=== PATIENT | male | born 1975 | race Caucasian/White ===

== ENCOUNTER 2017-02-16 11:25 | Emergency (ER) | payer OTHER | END 2017-02-16 12:35 | disposition home or self-care (01) | LOC: ER1 11:25 | DX: S83.411A Sprain of medial collateral ligament of right knee, initial encounter (principal); F17.210 Nicotine dependence, cigarettes, uncomplicated; Z88.0 Allergy status to penicillin; X58.XXXA Exposure to other specified factors, initial encounter; Y93.01 Activity, walking, marching and hiking; Y92.009 Unspecified place in unspecified non-institutional (private) residence as the place of occurrence of the external cause | CPT/HCPCS: 73564; 73590; 99283 ==

== ENCOUNTER 2017-03-18 09:12 | Emergency (ER) | payer OTHER | END 2017-03-18 10:10 | disposition home or self-care (01) | LOC: ER1 09:12 | DX: L23.7 Allergic contact dermatitis due to plants, except food (principal); F17.200 Nicotine dependence, unspecified, uncomplicated | CPT/HCPCS: 99282; Q0163 ==

== ENCOUNTER → 2017-07-07 | Outpatient (CLI) | payer OTHER | LOC: RAD 11:20 | DX: M25.561 Pain in right knee (principal); M25.562 Pain in left knee; M25.511 Pain in right shoulder; M84.411D Pathological fracture, right shoulder, subsequent encounter for fracture with routine healing | CPT/HCPCS: 73000; 73564 ==

== ENCOUNTER 2022-03-27 21:51 | Emergency (ER) | payer OTHER, MEDICARE ==
[~2022-03-27 21:51] MED LIST: ADULT LOW DOSE81 MG PO; CLEOCIN HCL300 MG PO; COL-RITE250 MG PO; DEPAKOTE 250 M250 MG PO; DILAUDID 4 MG TA4 MG PO; ECOTRIN81 MG PO; EFFEXOR XR75 MG PO; ENBREL INJ; ENBREL50 MG/1 M1 SQ; FLOMAX0.4 MG PO; FOLIC ACID 1 MG1 MG PO; GABAPENTIN300 MG PO; IBUPROFEN800 MG PO; IMITREX25 MG PO; MEN'S MULTI-VI1 EACH PO; METHOTREXATE T2.5 MG PO; METHOTREXATE2.5 MG PO; MONTELUKAST SOD10 MG PO; MS CONTIN TAB S15 MG PO; NAPROSYN500 MG PO; NORCO 5-325 TA1 EACH PO; NORCO 7.5-3251 EACH PO; ONDANSETRON ODT4 MG PO; PERCOCET 10-321 EACH PO; PREDNISONE5 MG PO; ROCEPHIN IM/I2000 MG IV; ROXICODONE5 MG PO; SINGULAIR10 MG PO; SUMATRIPTAN SUC25 MG PO; TORADOL 10 MG T10 MG PO; VANCOMYCIN1.5 GM/15 IV; VENTOLIN HFA 66.7 GM INH; VIT D2 PO; VITAMIN C 500500 MG PO; VITAMIN D250000 UNIT PO; ZOFRAN ODT 4 MG4 MG SL; ZOFRAN4 MG PO
[2022-03-27 22:08] LABS: HEMOGLOBIN 13.7 gm/dl (14.0-17.5); RED BLOOD COUNT 4.42 M/UL (4.20-5.50); WHITE BLOOD COUNT 8.2 K/UL (4.5-11.0)
== END 2022-03-28 03:00 | disposition short-term general hospital (02) ==
LOC: ER1 21:51
DX: N13.2 Hydronephrosis with renal and ureteral calculous obstruction (principal); J44.9 Chronic obstructive pulmonary disease, unspecified; M06.9 Rheumatoid arthritis, unspecified; Z90.89 Acquired absence of other organs; Z87.442 Personal history of urinary calculi; Z88.0 Allergy status to penicillin; F17.290 Nicotine dependence, other tobacco product, uncomplicated; Z20.822 Contact with and (suspected) exposure to COVID-19
CPT/HCPCS: 80053; 81001; 83605; 83690; 85025; 87040; 87086; 96365; 96375; 96376; 99285; J1170; J1885; J1956; J2270; J2405; Q9967; U0002